=== PATIENT | male | born 1955 | race Caucasian/White ===

== ENCOUNTER 2019-04-17 07:17 | Outpatient (CLI) | payer BC ==
[~2019-04-17] VITALS: Ht 172.7 cm; Wt 116.8 kg
--- NOTE | ~2019-04-17 | HEMODYNAMI ---
PATIENT:YANDY MESA MEDICAL RECORD: [id number] : 59 LOCATION:[facility] ADMISSION DATE: 04/17/19 Generatedon:04/17/20199:55 Patient name: YANDY MESA Patient #: [id number] SSN: [id number] : 1955 Date of study: 04/17/2019 Page: Of Hemodynamic Procedure Report Patient Data Patient Demographics Procedure consent was obtained First Name: YANDY Gender: Male Last Name: MOSHE : 1955 Patient #: [id number] Age: 64 year(s) Race: SSN: [id number] Additional ID: [id number] Contact details [address]: [address] [place] [address] State: [place] City: [place] Zip code: [address] Past Medical History Allergies: No known allergies Admission Admission Data Admission Date: 04/17/2019 Admission Time: 7:17 Arrival Date: 04/17/2019 Arrival Time: 0:00 Admit Source: Other Insurance Payor: Private health insurance [facility] #: [id number] Height (in.): 68 BSA: 2.28 (m2) Height (cm.): 172.72 BMI: 39.16 (kg/m2) Weight (lbs.): 257.52 Weight (kg.): 116.81 Lab Results Lab Result Date: 04/17/2019 Lab Result Time: 0:00 Biochemistry Name Units Result Min Max BUN mg/dl 29 --(----)-* 7 18 Creatinine mg/dl 2 --(----)-* 0.6 1.3 eGFR ml/min 36 *-(----)-- 90 120 NONAFRICAN CBC Name Units Result Min Max Hematocrit % 44.4 --(*---)-- 42 54 Hemoglobin g/dl 14.5 --(*---)-- 13.5 17.5 Procedure Procedure Types Cath Procedure Diagnostic Procedure Sedation Charges Moderate Sedation up to 15 minutes Peripheral Cath Diagnostic Procedure Medical Records Manager Peripheral Procedures AFRO (Diagnostic) Procedure Description Procedure Date Procedure Date: 04/17/2019 Procedure Start Time: 9:40 Procedure End Time: 9:54 Procedure Staff Name Function Fermin Yost MD Performing Physician Yeny Bassett RT Monitor Paradise Oquendo RT Monitor Taiwo Rodríguez RN Nurse Katarina Grubbs RT Scrub Procedure Data Cath Procedure Fluoroscopy Diagnostic fluoroscopy Total fluoroscopy Time: 1.9 time: 1.9 min min Diagnostic fluoroscopy Total fluoroscopy dose: 361 dose: 361 mGy mGy Contrast Material Contrast Material Type Amount (ml) Isovue 370 90 Entry Location Entry Primary Successful Side Size Upsize Upsize Entry Closure Succes sful Closure Location (Fr) 1 (Fr) 2 (Fr) Remarks Device Remarks Femoral Right 5 Fr Exoseal artery Estimated blood loss: 5 ml Procedure Complications No complications Procedure Medications Medication Administration Route Dosage Oxygen etCO2 Nasal cannula 2 l/min Lidocaine 2% added to field 20 Heparin Flush Bag added to field 2 bags (1000units/500ml NS) 0.9% NaCl I.V. 100 ml/hr Versed I.V. 2 mg Fentanyl I.V. 50 mcg Versed I.V. 2 mg Fentanyl I.V. 50 mcg Hemodynamics Rest BSA: 2.28 (m2) HGB: 14.5 (g/dl) O2 Consumption: Estimated: 266.16 (ml/min) O2 Co nsumption indexed: Estimated:116.74 (ml/min/m) Heart Rate: 69 (bpm) Snapshots Pre Cath Intra NCS Post Cath Vital Signs Time Heart Resp SPO2 etCO2 NIBP (mmHg) Rhythm Pain Sedation Rate (ipm) (%) (mmHg) Status Level (bpm) 8:57:09 69 19 100 35.4 126/80(98) NSR 0 (11) 10(A) , No pain 9:01:31 71 14 99 33.1 132/74(88) NSR 0 (11) 10(A) , No pain 9:05:47 68 15 99 31.6 119/75(100) NSR 0 (11) 10(A) , No pain 9:10:05 72 17 96 25.6 122/76(99) NSR 0 (11) 10(A) , No pain 9:14:22 72 16 97 22.6 120/72(91) NSR 0 (11) 10(A) , No pain 9:18:40 69 17 96 28.6 111/74(94) NSR 0 (11) 10(A) , No pain 9:22:57 71 12 96 27.1 113/69(94) NSR 0 (11) 10(A) , No pain 9:27:14 72 14 96 28.6 122/74(99) NSR 0 (11) 10(A) , No pain 9:31:34 74 14 97 37.6 117/69(90) NSR 0 (11) 10(A) , No pain 9:35:52 75 15 97 32.4 120/76(88) NSR 0 (11) 10(A) , No pain 9:40:08 69 12 98 33.9 117/75(101) NSR 0 (11) 9(A) , No pain 9:44:22 77 15 96 39.9 116/73(93) NSR 0 (11) 9(A) , No pain 9:48:38 77 14 95 28.6 117/72(90) NSR 0 (11) 10(A) , No pain 9:52:56 77 16 95 37.6 117/77(96) NSR 0 (11) 10(A) , No pain Medications Time Medication Route Dose Verified Delivered Reason Notes Effe ctiveness by by 9:13:02 Oxygen etCO2 2 Fermin Buffie used for Nasal l/min Priyank Rodríguez RN procedure cannula 9:13:08 Lidocaine 2% added 20ml Fermin Fermin for local to vial Priyank Yost MD anesthetic field 9:13:15 Heparin Flush added 2 Fermin Fermin used for Bag to bags Priyank Yost MD procedure (1000units/500ml field NS) 9:13:24 0.9% NaCl I.V. 100 Fermin Buffie Per ml/hr Priyank Rodríguez RN physician 9:35:58 Versed I.V. 2 mg Fermin Buffie for Priyank Rodríguez RN sedation 9:36:04 Fentanyl I.V. 50 Fermin Buffie for mcg Priyank Rodríguez RN sedation 9:40:10 Versed I.V. 2 mg Fermin Buffie for Priyank Rodríguez RN sedation 9:40:26 Fentanyl I.V. 50 Fermin Buffie for mcg Priyank Rodríguez RN sedation Procedure Log Time Note 8:36:54 Diagnostic Cath Status : Elective 8:37:28 Procedure Status Elective Heart Cath (OP). 8:37:30 Time tracking: Regular hours (M-F 7:00 - 5:00) 8:37:34 Plan of Care:Hemodynamics will remain stable., Cardiac rhythm will remain stable., Comfort level will be maintained., Respiratory function will remain adequate., Patient/ family verbilizes understanding of procedure., Procedure tolerated without complication., Recovers from procedure without complications.. 8:37:48 H&P Date Dictated: 03/28/2019 Within 30 days and on chart.. 8:40:39 Procedure type changed to Cath procedure, Diagnostic procedure, Sedation Charges, Moderate Sedation up to 15 minutes, Peripheral Cath Diagnostic Procedure, Medical Records Manager Peripheral Procedures, AFRO (Diagnostic) 8:42:27 Lab Result : eGFR NONAFRICAN 36 ml/min 8:42:27 Lab Result : Hemoglobin 14.5 g/dl 8:42:27 Lab Result : BUN 29 mg/dl 8:42:27 Lab Result : Creatinine 2 mg/dl 8:42:27 Lab Result : Hematocrit 44.4 % 8:43:02 Arrival Date: 04/17/2019 12:00:00 AM 8:43:04 Admit Source: Other 8:43:08 Patient Height : 68 inches 8:43:12 Patient Weight : 257.52 lbs 8:43:24 Insurance Payor : Private health insurance 8:43:52 Informed consent obtained and on chart 8:44:01 Yeny Bassett RT(R) sent for patient. Start room use. 8:44:28 Pre-procedure instructions explained to patient. 8:44:29 Pre-op teaching completed and patient verbalized understanding. 8:44:30 Family in waiting room. 8:44:32 Patient NPO since Midnight. 8:44:42 Stress Test: no; N/A ? 8:44:45 Lab results completed and on chart. 8:45:03 Patient allergic to No known allergies 8:53:08 Patient received from Pre/Post Procedure Room to CCL 1 Alert and oriented. Tansferred to table in Supine position. 8:53:09 Warm blankets applied, and harlan hugger turned on for patient comfort. 8:53:10 Correct patient and procedure confirmed by team. 8:53:11 ECG and BP/O2 sat monitors applied to patient. 8:53:14 Is the patient allergic to Iodine/contrast media? No. 8:53:16 Was the patient premedicated? Yes 8:53:18 Is patient on blood thinner?No 8:53:22 Patient diabetic? No. 8:53:25 If diabetic: On Metformin? N/A 8:53:27 ----Pre-sedation anethsthesia assessment.---- 8:53:31 Previous problem with sedation/anesthesia? No ? 8:53:32 Snore? Yes 8:53:34 Sleep apnea? No 8:53:35 Deviated septum? No 8:53:36 Opens mouth fully? Yes 8:53:37 Sticks out tongue? Yes 8:53:41 Airway obstruction? No ? 8:53:43 Dentures? No ? 8:55:13 Pre procedure: left dorsailis pedis pulse Doppler 8:55:17 Patient pain scale 0/10 ?. 8:55:32 IV patent on arrival in left forearm with 0.9% NaCl at [facility]. 8:55:43 Bilateral groins area was prepped with chlora-prep and draped in sterile fashion 8:55:45 Alarms reviewed by R. N. 8:55:46 Sharps counted by scrub and verified by R.N. 8:55:54 Vital chart was started 8:55:55 Full Disclosure recording started 8:55:59 Use device set Femoral Dx 8:56:01 Bag Decanter (2002) opened to sterile field. 8:56:01 Medline Cath Pack ([id number]) opened to sterile field. 8:56:02 ACIST Syringe (74927) opened to sterile field. 8:56:04 ACIST Hand Control (56734) opened to sterile field. 8:56:04 ACIST Manifold (50087) opened to sterile field. 8:56:08 SHEATH 5FR [place] (LMQ534) opened to sterile field. 8:56:09 EMERALD Guide Wire (502-905) opened to sterile field. 8:58:37 Baseline sample Acquired. 8:58:42 Rhythm: sinus rhythm 9:08:12 Baseline sample Acquired. 9:13:02 Oxygen 2 l/min etCO2 Nasal cannula was administered by Taiwo Rodríguez RN; used for procedure; Verbal order read back and verified. 9:13:08 Lidocaine 2% 20ml vial added to field was administered by Fermin Yost MD; for local anesthetic; Verbal order read back and verified. 9:13:15 Heparin Flush Bag (1000units/500ml NS) 2 bags added to field was administered by Fermin Yost MD; used for procedure; Verbal order read back and verified. 9:13:24 0.9% NaCl 100 ml/hr I.V. was administered by Taiwo Rodríguez RN; Per physician; Verbal order read back and verified. 9:34:22 --------ALL STOP TIME OUT------ 9:34:23 Final Timeout: patient, procedure, and site verified with staff and physician. All members of the team are in agreement. 9:34:25 Bilateral groins site verified by team. 9:34:30 Fire Safety Assessment: A--An alcohol-based skin anteseptic being used preoperatively., C--Open oxygen or nitrous oxide is being used., D--An ESU, laser, or fiber-optic light is being used. 9:34:38 Physical assessment completed. ASA score P 2 - A patient with mild systemic disease as per Fermin Yost MD. 9:34:42 3b) 30-44 Moderately reduced kidney function. 9:34:46 Maximum allowable contrast dose (3.7 X eGFR X 0.75)100 ml. 9:34:50 Sedation plan: IV Moderate Sedation Medication:Versed, Fentanyl 9:35:58 Versed 2 mg I.V. was administered by Taiwo Rodríguez RN; for sedation; Verbal order read back and verified. 9:35:59 Zero performed for pressure channel P1 9:36:04 Fentanyl 50 mcg I.V. was administered by Taiwo Rodríguez RN; for sedation; Verbal order read back and verified. 9:37:07 Procedure started. 9:40:10 Versed 2 mg I.V. was administered by Taiwo Rodríguez RN; for sedation; Verbal order read back and verified. 9:40:25 Local anesthetic to right femoral artery with Lidocaine 2% by Fermin Yost MD.INITIAL ACCESS ONLY 9:40:26 Fentanyl 50 mcg I.V. was administered by Taiwo Rodríguez RN; for sedation; Verbal order read back and verified. 9:40:43 A 5 Fr sheath was inserted into the Right Femoral artery 9:41:38 UF CATHETER ADVANCED. 9:42:18 Abdominal angiogram w/ runoff was performed. 9:49:25 CATHETER REMOVED. 9:50:13 EXOSEAL 5Fr (EX500) opened to sterile field. 9:50:27 Sheath removed intact; hemostasis achieved with Exoseal to the Right Femoral artery. 9:51:08 Procedure ended.(Physican Out) 9:51:26 Fluoroscopy time 01.90 minutes. 9:51:30 Fluoroscopy dose: 361 mGy 9:51:30 Flurop Dose total: 361 9:51:37 Dose Area Product 95173 mGy/cm. 9:52:00 Contrast amount:Isovue 370 90ml. 9:52:02 Maximum allowable dose exceeded? No. 9:52:04 Sharps counted by scrub and verified by R.N. 9:52:08 Post-op/insertion site Right Femoral artery dressed using a 4 x 4 and Tegaderm. 9:52:13 Post right femoral artery:stable, soft, clean and dry 9:52:15 Post Procedure Pulses reassessed and unchanged 9:52:20 Post procedure: right dorsailis pedis pulse Doppler. 9:52:24 Post-procedure physical assessment completed. ASA score P 2 - A patient with mild systemic disease as per Fermin Yost MD. 9:52:28 Post procedure rhythm: unchanged. 9:52:31 Estimated blood loss: 5 ml 9:52:33 Post procedure instruction explained to patient.Patient verbalizes understanding. 9:52:34 Patient needs reinforcement of post procedure teaching. 9:53:35 Procedure and supply charges have been captured, reviewed, submitted and are correct. 9:53:39 Procedure Complication : No complications 9:53:42 Vital chart was stopped 9:53:52 AFRO Findings: PVD: mild to moderate (<70%) 9:53:53 See physician's report for complete and final results. 9:53:55 Report given to Pre/Post Procedure Room. 9:53:59 Patient transfered to Pre/Post Procedure Room with Stretcher. 9:54:02 Operative report dictated upon procedure completion. 9:54:05 Procedure ended. 9:54:05 Full Disclosure recording stopped 9:54:13 End room use (Document Last) 9:54:23 End room use (Document Last) 9:54:43 End room use (Document Last) Device Usage Item Name Manufacture Quantity Catalog Hospital Part Current Minimal L ot# / Number Charge Number Stock Stock Serial# Code Tello Microtek 1 [id number] [id number] [id number] 5 Decanter Medical Inc. () Medline Medline 1 [id number] 83924 [id number] 5 Cath Pack ([id number]) ACIST Acist 1 04830 900143 414407 [id number] 20 Syringe Medical (44243) Systems Inc ACIST Hand Acist 1 23756 950619 976655 [id number] 5 Control Medical (78361) Systems Inc ACIST Acist 1 32307 700374 707929 552069 5 Manifold Medical (58615) Systems Inc SHEATH 5FR Terumo 1 [id number] 543809 272196 937288 5 [place] (JZX231) EMERALD Cardinal 1 502455 191836 379895 889521 5 Guide Wire [facility] (502455) EXOSEAL 5Fr Cardinal 1 EX500 639878 [id number] 10 (EX500) Health Signature Audit [place] Stage Time Signature Unsigned Intra-Procedure 04/17/2019 Paradise Oquendo 9:54:23 AM RT(R) Intra-Procedure 04/17/2019 Taiwo Rodríguez RN 9:54:43 AM Intra-Procedure 04/17/2019 Fermin Yost MD 9:55:11 AM [facility] [address] [place] [address]
[2019-04-17] MEDS ORDERED: ADCIRCA20 MG PO (07:40)
[2019-04-17] MEDS ORDERED: PREVACID30 MG PO (07:41)
[2019-04-17] MEDS ORDERED: BENICAR20 MG PO (07:41)
[2019-04-17 08:04] VITALS: BP 120/80; Ht 172.7 cm; Wt 116.8 kg
[2019-04-17 08:09] LABS: BASOPHILS 0.2 % (0-2); HEMATOCRIT 44.4 % (42.0-54.0); HEMOGLOBIN 14.5 g/dL (13.5-17.5); IMMATURE GRANULOCYTES 0.4 % (0-5); LYMPHOCYTES 21.4 % (15-50); MCH 31.5 pg (26.0-34.0); MCHC 32.7 g/dL (31.0-37.0); MCV 96.5 fL (80.0-100.0); MEAN PLATELET VOLUME 9.4 fL (7.4-10.4); MONOCYTES 7.2 % (2-11); NEUTROPHILS 69.8 % (40-80); PLATELET COUNT 198 10x3/uL (130-400); RDW 13.9 % (11.5-14.5); WBC 10.7 10x3/uL (4.8-10.8)
[2019-04-17 08:17] LABS: CARBON DIOXIDE 25.6 mmol/L (21.0-32.0); CHOL - HDL RATIO 2.9 ratio (2.3-4.9); LDL-HDL RATIO 1.8 ratio (1.5-3.5); POTASSIUM - SERUM 4.6 mmol/L (3.5-5.1)
--- NOTE | 2019-04-17 10:06 | NUR ---
PT ARRIVED BY STRETCHER. PLACED ON MONITOR. ASSESSMENT COMPLETED. FAMILY AT BEDSIDE. DR. MARES ROUNDED AND SPOKE WITH PT'S FAMILY.
--- NOTE | 2019-04-17 10:20 | NUR ---
RIGHT GROIN DRESSING C/D/I. NO S/S OF HEMATOMA NOTED. CALL LIGHT WITHIN REACH. VSS. FAMILY T BEDSIDE. PT RESTING COMFORTABLY.
--- NOTE | 2019-04-17 10:50 | NUR ---
PT RESTING COMFORTABLY. VSS. RIGHT GROIN DRESSING C/D/I. NO S/S OF HEMATOMA NOTED. CALL LIGHT WITHIN REACH. FAMILY AT BEDSIDE. NO NEEDS AT THIS TIME.
--- NOTE | 2019-04-17 11:00 | NUR ---
RIGHT GROIN DRESSING C/D/I. NO S/S OF HEMATOMA NOTED. CALL LIGHT WITHIN REACH. FAMILY AT BEDSIDE. PT'S HEAD OF BED INCREASED TO 30 DEGREES. TOLERATED WELL. SET UP WITH SANDWICH TRAY AND DRINK. DENIES NAUSEA/PAIN AT THIS TIME.
--- NOTE | 2019-04-17 11:30 | NUR ---
PT VOIDED IN URINAL APPROX 400cc OF CLEAR YELLOW URINE. RIGHT GROIN DRESSING C/D/I. NO S/S OF HEMATOMA NOTED. VSS. FAMILY AT BEDSIDE.
--- NOTE | 2019-04-17 12:00 | NUR ---
RIGHT GROIN DRESSING C/D/I. NO S/S OF HEMATOMA NOTED. PIV D/C'D WITH CATH TIP INTACT. PT INSTRUCTED TO GET UP AND DRESSED. FAMILY AT BEDSIDE TO ASSIST.
--- NOTE | 2019-04-17 12:25 | NUR ---
DISCUSSED DISCHARGE INSTRUCTIONS WITH PT AND PT'S FAMILY. THEY VOICED UNDERSTANDING.
--- NOTE | 2019-04-17 12:30 | NUR ---
PT TAKEN OUT TO VEHICLE BY WHEELCHAIR. NO S/S OF DISTRESS NOTED. ALL BELONGINGS AND PAPERWORK IN HAND.
== END 2019-04-17 12:30 | disposition home or self-care (01) ==
LOC: D.CATH 07:17
PROVIDERS: ATTEND Internal Medicine Cardiovascular Disease
DX: I73.9 Peripheral vascular disease, unspecified (principal); I10 Essential (primary) hypertension